=== PATIENT | male | born 1985 | race Caucasian/White ===

== ENCOUNTER 2016-10-12 00:49 | Emergency (ER) | payer MEDICAID ==
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
[2016-10-12] MEDS ORDERED: TDAP ADULT 0.5 ML INJ (BOOSTRIX) IM ONE (01:41)
[2016-10-12] MEDS ORDERED: ALPRAZolam 0.5 MG TAB PO ONE ×2 (01:41→02:08)
[2016-10-12] MEDS ORDERED: ALPRAZolam 0.25 MG TAB ONE ×2 (02:03→02:09)
[2016-10-12] MEDS ORDERED: ALPRAZolam 1 MG TAB ONE (02:41)
[2016-10-12] MEDS ORDERED: ALPRAZolam 1 MG TAB PO ONE ×2 (02:50→05:18)
[2016-10-12 05:29] VITALS: RESP 16; O2SAT 96
[2016-10-12 05:30] VITALS: BP 112/66; PULSE 66; TEMP 97.9
== END 2016-10-12 05:49 | disposition home or self-care (01) ==
LOC: EDUNIT#
PROC: 08QRXZZ Repair Left Lower Eyelid, External Approach (ICD-10-PCS; principal; 2016-10-12)
PROC: 0HQ0XZZ Repair Scalp Skin, External Approach (ICD-10-PCS; principal; 2016-10-12)
PROC: 0CQ0XZZ Repair Upper Lip, External Approach (ICD-10-PCS; principal; 2016-10-12)
DX: S01.81XA Laceration without foreign body of other part of head, initial encounter (principal); S01.01XA Laceration without foreign body of scalp, initial encounter; Z23 Encounter for immunization; Y00.XXXA Assault by blunt object, initial encounter